=== PATIENT | male | born 1960 | race Two or more races ===

== ENCOUNTER 2019-09-06 10:57 | Emergency (ER) | payer MEDICAID ==
[~2019-09-06] VITALS: Ht 162.6 cm; Wt 77.0 kg
[2019-09-06] MEDS ORDERED: KETOROLAC 30MG/ML VIAL IM ONE (11:45)
[2019-09-06 12:55] VITALS: BP 155/97
== END 2019-09-06 12:59 | disposition home or self-care (01) ==
LOC: ER 11:02
DX: S09.8XXA Other specified injuries of head, initial encounter (principal); W20.8XXA Other cause of strike by thrown, projected or falling object, initial encounter; Y93.89 Activity, other specified; R03.0 Elevated blood-pressure reading, without diagnosis of hypertension; Y92.69 Other specified industrial and construction area as the place of occurrence of the external cause; Y99.0 Civilian activity done for income or pay; Z94.4 Liver transplant status
CPT/HCPCS: 70450; 96372; 99284; J1885